=== PATIENT | female | born 1980 | race Caucasian/White ===

== ENCOUNTER 2022-11-30 14:54 | Emergency (ER) | payer OTHER ==
--- NOTE | 2022-11-30 15:00 | ERPHSYRPT ---
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 Over the last 48 hours the pain is increased and there is a area of swelling in the right radial fossa region. Patient has had history of a right thumb fracture when she was a child. She is here today for an x-ray because of the increased pain and notice of the swelling present Occurred: days ago (2) Method of Injury: twisted Quality: constant, aching Severity of Pain-Max: mild Severity of Pain-Current: mild Extremities Pain Location: wrist: right Modifying Factors: Improves With: movement Associated Symptoms: none Allergies/Adverse Reactions: No Known Drug Allergies Allergy (Verified 11/30/22 15:08) Home Medications: Sertraline HCl 50 mg [Zoloft 50 mg Tablet] 50 mg PO DAILY 02/04/22 [History] Hx Tetanus, Diphtheria Vaccination/Date Given: Yes Hx Influenza Vaccination/Date Given: Yes Hx Pneumococcal Vaccination/Date Given: No Travel Risk - International Travel Have you traveled outside of the country in past 3 weeks: No - Coronavirus Screening Are you exhibiting any of the following symptoms?: No Close contact with a COVID-19 positive Pt in past 14-21 Days: No - Vaccine Status Have you recieved a Covid-19 vaccination: Yes 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: [email or web address] - Review of Systems Constitutional: No Symptoms Eyes: No Symptoms Ears, Nose, & Throat: No Symptoms Respiratory: No Symptoms Cardiac: No Symptoms Abdominal/Gastrointestinal: No Symptoms Genitourinary Symptoms: No Symptoms Musculoskeletal: Injury Skin: No Symptoms (Right wrist) Neurological: No Symptoms Psychological: No Symptoms Endocrine: No Symptoms Hematologic/Lymphatic: No Symptoms Immunological/Allergic: No Symptoms All Other Systems: Reviewed and Negative - Past Medical History Pertinent Past Medical History: Yes Neurological History: No Pertinent History Cardiac History: No Pertinent History Respiratory History: No Pertinent History Endocrine Medical History: No Pertinent History Musculoskeletal History: No Pertinent History Female Reproductive Disorders: Cervical Cancer Other Medical History: R Thumb fracture (childhood), Tonsillectomy (1998), C- Section (2002, 2004), Appendectomy (2004), Cholecystectomy (2012), Hysterectomy (2018) - Past Surgical History Past Surgical History: Yes Other Surgical History: R Thumb fracture (childhood), Tonsillectomy (1998), C- Section (2002, 2004), Appendectomy (2004), Cholecystectomy (2012), Hysterectomy (2018), carpal tunnel in bilateral wrists (2020) - Social History Smoking Status: Current every day smoker Exposure to second hand smoke: Yes Drug Use: none Patient Lives Alone: No - Nursing Vital Signs Nursing Vital Signs: Initial Vital Signs Temperature 97 F 11/30/22 15:07 Pulse Rate 69 11/30/22 15:07 Respiratory Rate 18 11/30/22 15:07 Blood Pressure 118/66 11/30/22 15:07 O2 Sat by Pulse Oximetry 97 11/30/22 15:07 Pain Scale Pain Intensity 8 - Physical Exam General Appearance: no apparent distress, alert Eyes, Ears, Nose, Throat Exam: normal ENT inspection, moist mucous membranes Neck Exam: normal inspection, non-tender, supple, full range of motion Cardiovascular/Respiratory Exam: chest non-tender, no respiratory distress Abdominal Exam: non-tender Back Exam: normal inspection, normal range of motion, No CVA tenderness, No vertebral tenderness Shoulder Exam: normal inspection, non-tender, no evidence of injury, normal ROM Elbow/Forearm Exam: normal inspection, non-tender, no evidence of injury, normal ROM Wrist Exam: normal ROM, soft tissue tenderness (Right wrist radial fossa), swelling (Right wrist radial fossamild) Hand Exam: normal inspection, non-tender, no evidence of injury, normal ROM Neuro/Tendon Exam: normal sensation, normal motor functions, normal tendon functions Mental Status Exam: alert, oriented x 3, cooperative Skin Exam: normal color, warm, dry SpO2 Interpretation: normal O2 Delivery: Room Air - Course Nursing assessment & vital signs reviewed: Yes Ordered Tests: Active Orders 24 hr Category Date Time Status Splint STAT Care 11/30/22 16:07 Active WRIST (MIN 3 VIEWS) Stat Exams 11/30/22 15:21 Completed - Progress Progress: unchanged, pain not gone completely Progress Note: 11/30/22 15:57 X-ray right wrist shows no acute fracture or dislocation. Patient has a strong radial pulse. She has full range of motion of her wrist on the right side and all her digits. Counseled pt/family regarding: diagnosis, need for follow-up, rad results - Departure Departure Disposition: Home Clinical Impression: Sprain of right wrist Condition: Stable Critical Care Time: No Referrals: JENNIFER FERNANDO NP [Primary Care Provider] - Follow up/PCP as directed Instructions: Wrist Sprain (DC) Additional Instructions: Soak right wrist in ice water 3 times a day for 5 minutes at a time for the next 48 hours. Use Tylenol and ibuprofen for pain control. May follow-up in [facility] orthopedic clinic Wednesday through Wednesday 8 AM to 10 AM if your wrist pain persists beyond 48 hours. It is a walk-in clinic and you do not need an appointment. May use the Velcro splint for comfort.
--- NOTE | 2022-11-30 16:27 | XRAY ---
Indication: Swelling following injury. Comparison: None 3 view right wrist demonstrates punctate ulnar styloid tip heterotopic ossification either degenerative versus sequela old injury. No other bony, articular, or soft tissue abnormalities.
[2022-11-30 16:45] VITALS: BP 116/64; PULSE 70; O2SAT 97
== END 2022-11-30 16:56 | disposition home or self-care (01) ==
LOC: ED 14:54
DX: S63.501A Unspecified sprain of right wrist, initial encounter (principal); X50.0XXA Overexertion from strenuous movement or load, initial encounter; Y93.F2 Activity, caregiving, lifting; Y92.129 Unspecified place in nursing home as the place of occurrence of the external cause; Y99.0 Civilian activity done for income or pay; Z79.899 Other long term (current) drug therapy; Z72.0 Tobacco use
CPT/HCPCS: 73110; 99283; L3908

== ENCOUNTER 2023-01-05 12:37 | Emergency (ER) | payer OTHER ==
--- NOTE | 2023-01-05 12:48 | ERPHSYRPT ---
- History of Present Illness Time Seen by Provider: 01/05/23 12:48 Source: patient Exam Limitations: no limitations Physician History: This is an overweight 42-year-old white female patient of nurse practitioner Page. Patient presents with left lower back pain after attempting to lift and move a water heater last evening. The pain was worse this morning. She did not fall or suffer any acute traumatic injury. Patient does have a history of degenerative disc disease in her back. Patient denies urinary incontinence. She has no bowel incontinence. She has no numbness in her feet. Timing/Duration: yesterday Method of Injury: bending, lifting, twisted Quality: sharp, stabbing Back Pain Location: paraspinous muscles (Lumbar spine level) Severity of Pain-Max: moderate Severity of Pain-Current: moderate Modifying Factors: Improves With: movement Associated Symptoms: muscle spasms, No urinary incontinence, No loss of bowel control, No constipation, No problems urinating, No numbness in legs/feet Previous symptoms: same symptoms as today, no recent treatment Allergies/Adverse Reactions: No Known Drug Allergies Allergy (Verified 01/05/23 12:50) Home Medications: Sertraline HCl 50 mg [Zoloft 50 mg Tablet] 50 mg PO DAILY 02/04/22 [History] Hx Tetanus, Diphtheria Vaccination/Date Given: Yes Hx Influenza Vaccination/Date Given: Yes Hx Pneumococcal Vaccination/Date Given: No Travel Risk - International Travel Have you traveled outside of the country in past 3 weeks: No - Coronavirus Screening Are you exhibiting any of the following symptoms?: No Close contact with a COVID-19 positive Pt in past 14-21 Days: No - Vaccine Status Have you recieved a Covid-19 vaccination: Yes 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: [email or web address] - Review of Systems Constitutional: No Symptoms Eyes: No Symptoms Ears, Nose, & Throat: No Symptoms Respiratory: No Symptoms Cardiac: No Symptoms Abdominal/Gastrointestinal: No Symptoms Genitourinary Symptoms: No Symptoms Musculoskeletal: Back Pain (Lumbar level left side paraspinous muscle spasms) Skin: No Symptoms Neurological: No Symptoms Psychological: No Symptoms Endocrine: No Symptoms Hematologic/Lymphatic: No Symptoms Immunological/Allergic: No Symptoms All Other Systems: Reviewed and Negative - Past Medical History Pertinent Past Medical History: Yes Neurological History: No Pertinent History Cardiac History: No Pertinent History Respiratory History: No Pertinent History Endocrine Medical History: No Pertinent History Musculoskeletal History: No Pertinent History Female Reproductive Disorders: Cervical Cancer Other Medical History: R Thumb fracture (childhood), Tonsillectomy (1998), C- Section (2002, 2004), Appendectomy (2004), Cholecystectomy (2012), Hysterectomy (2018) - Past Surgical History Past Surgical History: Yes Other Surgical History: R Thumb fracture (childhood), Tonsillectomy (1998), C-S ection (2002, 2004), Appendectomy (2004), Cholecystectomy (2012), Hysterectomy (2018), carpal tunnel in bilateral wrists (2020) - Social History Smoking Status: Current every day smoker Exposure to second hand smoke: Yes Drug Use: none Patient Lives Alone: No - Nursing Vital Signs Nursing Vital Signs: Initial Vital Signs Pulse Rate 66 01/05/23 12:50 Respiratory Rate 24 01/05/23 12:50 Blood Pressure 120/67 01/05/23 12:50 O2 Sat by Pulse Oximetry 99 01/05/23 12:50 Pain Scale Pain Intensity [Lower Back] 10 Pain Intensity 10 - Physical Exam General Appearance: no apparent distress, alert, anxiety, obese Eye Exam: PERRL/EOMI, eyes nml inspection Ears, Nose, Throat Exam: normal ENT inspection, moist mucous membranes Neck Exam: normal inspection, non-tender, supple, full range of motion Respiratory Exam: normal breath sounds, lungs clear, airway intact, No chest tenderness, No respiratory distress Cardiovascular Exam: regular rate/rhythm, normal heart sounds, normal peripheral pulses Gastrointestinal Exam: No tenderness Pelvic Exam: not done Rectal Exam: not done Back Exam: normal range of motion, muscle spasm (Left lumbar level), No CVA tenderness, No vertebral tenderness Extremity Exam: normal inspection, normal range of motion, pelvis stable Neurologic Exam: alert, oriented x 3, cooperative, baseball glove 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-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 nml as tested, normal mood/affect, nml cerebellar function, nml station & gait, sensation nml Skin Exam: normal color, warm, dry Lymphatic Exam: No adenopathy SpO2 Interpretation: normal O2 Delivery: Room Air - Course Nursing assessment & vital signs reviewed: Yes Ordered Tests: Medication Summary Discontinued Medications Generic Name Dose Route Start Last Admin Trade Name Freq PRN Reason Stop Dose Admin Hydromorphone HCl 1 mg 01/05/23 13:00 Hydromorphone 1 Mg/1ml Inj 1 Mg/Ml Syringe IM 01/05/23 13:01 STAT ONE Ketorolac Tromethamine 60 mg 01/05/23 13:00 Ketorolac Tromethamine 30 Mg/Ml Inj IM 01/05/23 13:01 STAT ONE Ondansetron HCl 4 mg 01/05/23 13:01 Zofran 4 Mg/Udtablet Orally Disintegrating PO 01/05/23 13:02 STAT ONE Orphenadrine Citrate 60 mg 01/05/23 13:01 Orphenadrine Citrate 60 Mg/2 Ml Vial IM 01/05/23 13:02 STAT ONE - Progress Progress: improved, pain not gone completely Progress Note: 01/05/23 13:09 This patient does not want any type of radiographic study at this time. This patient's medical issue is 1 of low complexity. Patient has chronic low back degenerative issues. She lifted and twisted and heavy item last evening. She does not want any radiographic studies at this time. No specific work-up is necessary. However, based on her history of present illness and physical findings and degree of pain that she is experiencing, we provided her with intramuscular Dilaudid, intramuscular orphenadrine, intramuscular Toradol and oral Zofran. Discharge plan will include oral orphenadrine and oral steroids. Patient is to follow-up with her primary care physician for further evaluation management. Medical Desision Making - Discussion of managment Agreed on:: Treatment plan, need for follow-up - Risk of complications Minimal Risk: Minimal risk of morbidity The pt has a mod risk of morbidity or mortality based on: Need for prescription drug management - Departure Departure Disposition: Home Clinical Impression: Acute exacerbation of chronic low back pain Condition: Stable Critical Care Time: No Referrals: JENNIFER FERNANDO NP [Primary Care Provider] - Follow up/PCP as directed Additional Instructions: Take your medication as prescribed. Follow-up with your primary care provider for further evaluation management. Prescriptions: Prednisone 10 mg [Deltasone 10 mg] 10 mg PO TID #12 tablet Orphenadrine Citrate 100 mg [Norflex 100 MG Tablet] 100 mg PO BID #10 tab
[2023-01-05] MEDS ORDERED: TORAdol 30 mg Injection IM ONE (13:00)
[2023-01-05] MEDS ORDERED: Hydromorphone 1 mg/ml Injection IM ONE (13:00)
[2023-01-05] MEDS ORDERED: Norflex 60 MG/2 ML IM ONE (13:01)
[2023-01-05] MEDS ORDERED: ZOFRAN ODT 4 MG PO ONE (13:01)
[2023-01-05] MEDS ORDERED: Norflex 60 MG/2 ML ONE (13:09)
[2023-01-05] MEDS ORDERED: TORAdol 30 mg Injection ONE ×2 (13:09→13:30)
[2023-01-05] MEDS ORDERED: ZOFRAN ODT 4 MG ONE (13:09)
[2023-01-05] MEDS ORDERED: Hydromorphone 1 mg/ml Injection ONE (13:10)
[2023-01-05 13:49] VITALS: BP 119/72; PULSE 71; O2SAT 97
== END 2023-01-05 13:50 | disposition home or self-care (01) ==
LOC: ED 12:37
DX: G89.29 Other chronic pain (principal); M54.50 Low back pain, unspecified; Z79.52 Long term (current) use of systemic steroids; Z79.899 Other long term (current) drug therapy; Z72.0 Tobacco use
CPT/HCPCS: 96372; 99283; J1170; J1885; J2360; Q0162